=== PATIENT | female | born 1970 | race American Indian/Alaskan Native ===

== ENCOUNTER 2017-05-18 23:32 | Emergency (ER) | payer MEDICAID ==
[~2017-05-18] VITALS: Ht 167.6 cm; Wt 56.5 kg
[~2017-05-18 23:32] MED LIST: IBUP-1051 PO; NO HOME MEDS
[2017-05-18 23:35] VITALS: BP 142/51
[2017-05-19] MEDS ORDERED: ibuprofen tablet 400 MG TABLET PO ONE (00:25)
[2017-05-19] MEDS ORDERED: IBUP-1984 PO (00:28)
[2017-05-19] MEDS ORDERED: METH4TAB81 PO (00:28)
[2017-05-19] MEDS ORDERED: HYDR-3965 PO (00:28)
== END 2017-05-19 01:01 | disposition home or self-care (01) ==
LOC: ER 23:33
DX: M62.830 Muscle spasm of back (principal); M54.12 Radiculopathy, cervical region; F17.200 Nicotine dependence, unspecified, uncomplicated; Z79.899 Other long term (current) drug therapy
CPT/HCPCS: 99283

== ENCOUNTER 2019-11-29 15:37 | Emergency (ER) | payer MEDICAID, OTHER ==
[~2019-11-29] VITALS: Ht 162.6 cm; Wt 61.4 kg
[~2019-11-29 15:37] MED LIST changes: +METH4TAB81 PO
[2019-11-29 16:00] VITALS: BP 144/85
--- NOTE | 2019-11-29 17:27 | NUR ---
Patient not in lobby. Informed registration that they needed to leave and go to work. No need to call per MD
== END 2019-11-29 17:28 | disposition left against medical advice (07) ==
LOC: ER 15:38
DX: M25.562 Pain in left knee (principal); Z53.21 Procedure and treatment not carried out due to patient leaving prior to being seen by health care provider

== ENCOUNTER 2019-11-30 00:31 | Emergency (ER) | payer OTHER ==
[~2019-11-30] VITALS: Ht 162.6 cm; Wt 61.4 kg
[2019-11-30 01:52] VITALS: BP 142/88
== END 2019-11-30 01:56 | disposition home or self-care (01) ==
LOC: ER 00:31
DX: S30.1XXA Contusion of abdominal wall, initial encounter (principal); M25.512 Pain in left shoulder; M54.2 Cervicalgia; M54.5 Low back pain; F17.200 Nicotine dependence, unspecified, uncomplicated; Z98.51 Tubal ligation status; Z79.899 Other long term (current) drug therapy; V89.2XXA Person injured in unspecified motor-vehicle accident, traffic, initial encounter; Y93.89 Activity, other specified; Y92.89 Other specified places as the place of occurrence of the external cause; Y99.8 Other external cause status
CPT/HCPCS: 93005; 99283

== ENCOUNTER 2020-02-24 19:56 | Emergency (ER) | payer OTHER ==
[~2020-02-24] VITALS: Ht 162.6 cm; Wt 59.1 kg
[2020-02-24 21:45] VITALS: BP 133/90
[2020-02-24] MEDS ORDERED: ketorolac tromethamine 15mg/ml inj. IM ONE (21:50)
[2020-02-24] MEDS ORDERED: LORazepam 1 MG tablet PO ONE ×2 (21:50→22:55)
[2020-02-24] MEDS ORDERED: meclizine 12.5mg tablet PO ONE ×2 (21:50→22:55)
[2020-02-24] MEDS ORDERED: LORA-269 PO (23:03)
[2020-02-24] MEDS ORDERED: MECL-159 PO (23:03)
== END 2020-02-24 23:32 | disposition home or self-care (01) ==
LOC: ER 19:57
DX: R42 Dizziness and giddiness (principal); F17.200 Nicotine dependence, unspecified, uncomplicated; Z98.51 Tubal ligation status; Z79.899 Other long term (current) drug therapy
CPT/HCPCS: 93005; 96372; 99284; J1885; J8597

== ENCOUNTER 2022-05-02 19:58 | Emergency (ER) | payer BC ==
[~2022-05-02] VITALS: Ht 162.6 cm; Wt 60.0 kg
[2022-05-02 19:58] VITALS: BP 126/75
[~2022-05-02 19:58] MED LIST changes: +LORA-269 PO; +MECL-159 PO
== END 2022-05-02 21:28 | disposition home or self-care (01) ==
LOC: ER 19:58
DX: R05.9 Cough, unspecified (principal); Z88.8 Allergy status to other drugs, medicaments and biological substances; Z79.899 Other long term (current) drug therapy
CPT/HCPCS: 99281